=== PATIENT | female | born 1995 | race Caucasian/White ===

== ENCOUNTER 2019-11-07 04:39 | Inpatient (IN) | payer OTHER ==
[2019-11-07] VITALS (31 sets, daily range): BP systolic 110–171; BP diastolic 58–106
[~2019-11-07] VITALS: Ht 162.6 cm; Wt 78.7 kg
[2019-11-07] MEDS ORDERED: PRENTAB9 PO (05:00)
[2019-11-07] MEDS ORDERED: LACTATED RINGER'S 1000 ML IV STA (05:09)
[2019-11-07] MEDS ORDERED: LABETALOL HCL 100 MG/20 ML VIAL IV SCH (05:30)
[2019-11-07 06:30] LABS: BASO % 0.2 % (0.0-1.0); EOS % 0.2 % (0.0-3.0); HEMATOCRIT 37.2 % (36.0-47.0); LYMPH # 1.6 10^3/uL (1.5-5.0); LYMPH % 12.5 % (24.0-44.0); MEAN CORPUSCULAR HEMOGLOBIN 31.8 pg (27.0-33.0); MEAN CORPUSCULAR HGB CONC 34.9 g/dl (32.0-36.5); MONO # 0.9 10^3/uL (0.0-0.8); MONO % 6.8 % (0.0-5.0); NEUTROPHILS # 10.2 10^3/uL (1.5-8.5); NEUTROPHILS % 79.8 % (36.0-66.0); PLATELET COUNT, AUTOMATED 127 10^3/uL (150-450); RED BLOOD COUNT 4.09 10^6/uL (4.00-5.40); WHITE BLOOD COUNT 12.8 10^3/uL (4.0-10.0)
[2019-11-07 06:32] LABS: ALT/SGPT 17 U/L (12-78); BILIRUBIN,TOTAL 0.6 MG/DL (0.2-1.0); CREATININE FOR GFR 0.77 MG/DL (0.55-1.30); GLOMERULAR FILTRATION RATE > 60.0 (>60); LDH LACTATE DEHYDROGENASE 215 U/L (84-246); URIC ACID 4.5 MG/DL (2.6-6.0)
--- NOTE | 2019-11-07 06:34 | HPEPDOC ---
Obstetrical History & Physical General Date of Admission Nov 07, 2019 at 05:03 History of Present Illness Patient is a 24-year-old G1, P0 at 41.0 weeks by dating 8 week ultrasound. Prese nts with contractions every 3-5 minutes for past 2 hours. She was scheduled for an induction of labor for postdates today also. She denies any headaches or visual changes or right upper quadrant pain. No loss of fluid or bleeding. Good movement. 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 Past Medical History Medical History excercise induced asthma Surgical History: Other (left foot surgery) Family History Significant Family History: No pertinent family hx Social History Marital Status: Family situation: Spouse/partner home Psychosocial History: No pertinent psych hx * Smoker: non-smoker Alcohol: Denies Drugs: denies Abuse Violence Screening Have you been hit/kicked/slapp: No Have you been sexually assault: No Imunizations Tdap status: current Influenza Status: current Allergies Coded Allergies: No Known Allergies (Unverified , 11/07/19) Medications Scheduled No.137/Iron/Folic Acd ( Vitamin Tablet) 1 Each Tablet, 1 TAB PO DAILY Physical Examination Physical Examination GENERAL: Alert and oriented times three. BREAST: . ABDOMEN: Gravid and non-tender to touch. FETUS: Is vertex (VTX) by sterile vaginal examination (SVE), fetus is vertex (VTX) by Anthony with EFW 3500gm. HEART RATE: Regular rate and rhythm. LUNGS: Clear to auscultation (CTA). EXTREMITIES: No edema. Laboratory Data 24H LABS Laboratory Tests 2 11/07/19 05:11: Serology Scanned Report Hepatitis B Testing 11/07/19 05:50: CBC/BMP Urine Culture: No Growth Pertinent Laboratoy Data Blood Type: A+ RBC Antibody Screen: Negative HIV: Negative Hepatitis B: Negative Rapid Plasma Reagin: Nonreactive Rubella: Immune Varicella: Immune Chlamydia/Gonorrhea: Negative Group B Streptococcus: Negative Quad Screen Test: Negative Cystic Fibrosis: Negative Glucose Tolerance Test: 112 Anatomy Ultrasound Ultrasound Date: Jul 08, 2019 Placenta Location: Posterior Normal Anatomy: Yes (choroid plexus cyst, but normal) Placenta Previa: No Estimated Weight (grams): 531 Vaginal Examination Dilation: 2cm Effacement: 30% Station: -3 Presentation: Cephalic presentation Assessment Heart Rate (FHR): 140 Variability: Moderate Accelerations: Positive Decelerations: None Tocometer Contractions: Yes Frequency: regular, every 2-5 min. Duration: less than 60 seconds Strength: palpated as moderate Multi-drug resistant Organism: No history of MDRO Assessment/Plan Assessment Patient is a 24-year-old G1, P0 at 41.0 weeks by dating 8 week ultrasound. Admit for early labor and induction and expect delivery by . Pain management per patient preference, which was discussed with her. I discussed risks of with patient of failure with section, distress, bleeding, i nfection, , vaginal or perineal or neighboring organ tear. Blood pressures mildly elevated in the 150s over 80s. Preeclamptic panel will be ordered and blood pressures will be monitored for preeclampsia. If blood pressures go into the severe range or symptoms of preeclampsia, then magnesium sulfate will be started. This was discussed with the patient. Induction will be started with by mouth Cytotec and then possibly Pitocin. Currently, fetus is reassuring. GBS is negative, no need for antibiotics. 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 Diet: Regular. Group B Streptococcus (GBS) negative. Labs and intravenous (IV) per unit protocol. Counseled on Pitocin and induction of labor (IOL) with initially Cytotec and then possibly Pitocin. Lactated Ringers (LR): Bolus 500 mL, then at, 125 mL/hr. Anticipate normal spontaneous delivery (). Pain management per patient. Rachelle Nielson MD Nov 07, 2019 06:34
[2019-11-07] MEDS ORDERED: miSOPROStol 25 MCG 1/4 TAB (S0191) PO ONE (06:45)
[2019-11-07] MEDS ORDERED: ACETAMINOPHEN 500 MG TAB PO PRN (06:45)
[2019-11-07] MEDS ORDERED: SIMETHICONE 80 MG CHEW TAB PO PRN (06:45)
[2019-11-07] MEDS ORDERED: PROMETHAZINE INJ 25 MG/ML VIAL (J2550) IV ONE ×2 (06:45→20:45)
[2019-11-07] MEDS ORDERED: CALCIUM CARBONATE 500 MG CHEW U/D PO PRN (06:45)
[2019-11-07] MEDS ORDERED: PROMETHAZINE INJ 25 MG/ML VIAL (J2550) IV PRN (06:45)
[2019-11-07] MEDS ORDERED: BUTORPHANOL 2 MG/ML INJ (J0595) IV PRN (06:45)
[2019-11-07 07:57] LABS: APPEARANCE, URINE CLEAR (CLEAR); BACTERIA, URINE AUTO 2+ (NEGATIVE); BILIRUBIN, URINE AUTO NEGATIVE (NEGATIVE); BLOOD, URINE BLOOD 3+ (NEGATIVE); COLOR, URINE STRAW (YELLOW); GLUCOSE, URINE (UA) AUTO NEGATIVE (NEGATIVE); KETONE, URINE AUTO NEGATIVE (NEGATIVE); LEUKOCYTE ESTERASE, URINE AUTO TRACE (NEGATIVE); MUCUS, URINE SMALL (NEGATIVE); NITRITE, URINE AUTO NEGATIVE (NEGATIVE); PROTEIN, URINE AUTO NEGATIVE (NEGATIVE); RBC, URINE AUTO 3 /HPF (0-3); SPECIFIC GRAVITY URINE AUTO 1.002 (1.002-1.035); SQUAMOUS EPITHELIAL CELL UR AU 0 /HPF (0-6); UROBILINOGEN, URINE AUTO 0.2 mg/dL (0.0-2.0); WBC, URINE AUTO 2 /HPF (0-3)
[2019-11-07 08:22] LABS: CREATININE,RANDOM URINE 32.4 MG/DL; TOTAL PROTEIN,RANDOM URINE 16.6 MG/DL (0.0-12.0)
--- NOTE | 2019-11-07 10:28 | IPNPDOC ---
Text Note Date of Service The patient was seen on 11/07/19. NOTE Patient is a 24 yo G1 @ 41wks gestation admitted this AM for IOL for pending postdates. She is having irregular contractions. Denies PAYAN/N/V/change in vision. Her admission significant for mild range BP with spot urine 0.51 and plt of 127 vitals: mild range nad LE: no edema/erythema/tednerness fht: 140/mod claire/pos accel/ no decel toco: irregular ctx ce: 2-3/80/-1, mid, soft a/p patient is a@ 41 wks gestation with s/s consistent with pre-eclampsia. Start Mag if she shows signs of severe feature. davis bulb cath placed with 80cc on cervical side placed. will recheck as needed. DO Sveta VS,Rafy, I+O VS, Fishbone, I+O Laboratory Tests 11/07/19 05:50 Vital Signs Date Time Temp Pulse Resp B/P (MAP) Pulse Ox O2 Delivery O2 Flow Rate FiO2 11/07/19 09:16 79 18 157/84 (108) 11/07/19 07:37 98.2 ZOE DE LA PAZ DO Nov 07, 2019 10:26
[2019-11-07] MEDS ORDERED: OXYTOCIN DRIP 30 UNITS in IV 1 EA IV SCH (12:45)
[2019-11-07] MEDS: LR 1,000 ML IV SCH ×2 (13:00→16:53)
[2019-11-07] MEDS: BUTORPHANOL 2 MG/ML INJ (J0595) IV PRN ×2 (16:41→20:50)
[2019-11-07 18:58] LABS: BASO % 0.2 % (0.0-1.0); EOS % 0.1 % (0.0-3.0); HEMATOCRIT 35.4 % (36.0-47.0); HEMOGLOBIN 12.4 g/dl (12.0-15.5); LYMPH # 1.2 10^3/uL (1.5-5.0); LYMPH % 8.6 % (24.0-44.0); MEAN CORPUSCULAR HEMOGLOBIN 32.1 pg (27.0-33.0); MEAN CORPUSCULAR VOLUME 91.7 fl (80.0-96.0); MONO % 7.1 % (0.0-5.0); NEUTROPHILS # 11.8 10^3/uL (1.5-8.5); NEUTROPHILS % 83.6 % (36.0-66.0); PLATELET COUNT, AUTOMATED 114 10^3/uL (150-450); RED BLOOD COUNT 3.86 10^6/uL (4.00-5.40); WHITE BLOOD COUNT 14.1 10^3/uL (4.0-10.0)
[2019-11-07 19:30] LABS: ALT/SGPT 16 U/L (12-78); CREATININE FOR GFR 0.67 MG/DL (0.55-1.30); GLOMERULAR FILTRATION RATE > 60.0 (>60); LDH LACTATE DEHYDROGENASE 185 U/L (84-246); URIC ACID 4.5 MG/DL (2.6-6.0)
--- NOTE | 2019-11-07 23:42 | IPNPDOC ---
Text Note Date of Service The patient was seen on 11/07/19. NOTE patient is coping with regular painful contractions on pit 10mU/min. her davis bulb came out at around 12:40 and pitocin was started shortly after. She was checked to be 6cm per nursing staff at aroun 1800. She has received stadol and phenergan x 2 for pain management. vitals: normal - mild range fht: 140/mod claire/pos accel/occasional decel toco: ctx q 2mins ce: 6/80/-1, AROM with light mec small amount of fluid expressed a/p patient likely transitioning to active labor. continue to titrate pit to effect. recheck in 4hrs. place IUPC to assess contraction strength at that time if she remains unchanged. DO Sveta VS,Rafy, I+O VS, Rafy, I+O Laboratory Tests 11/07/19 05:50 11/07/19 18:41 Vital Signs Date Time Temp Pulse Resp B/P (MAP) Pulse Ox O2 Delivery O2 Flow Rate FiO2 11/07/19 22:35 98.0 80 150/80 (103) 11/07/19 20:50 18 ZOE DE LA PAZ DO Nov 07, 2019 23:42
[2019-11-08] VITALS (71 sets, daily range): BP systolic 106–174; BP diastolic 51–97
[2019-11-08] MEDS ORDERED: FENTANYL 2MCG/ML ROPIVACAINE 0.2% IN 0.9% NACL 100ML IVBAG As Ordered ONE ×2 (00:20→10:47)
[2019-11-08] MEDS ORDERED: diphenhydrAMINE INJ 50MG/ML VIAL (J1200) IV PRN ×2 (00:50→15:20)
[2019-11-08] MEDS ORDERED: ONDANSETRON 4MG/2ML VIAL (J2405) IV PRN ×3 (00:50→16:45)
[2019-11-08] MEDS ORDERED: NALOXONE INJ 0.4 MG/1 ML VIAL (J2310) IV PRN ×3 (00:50→15:20)
[2019-11-08] MEDS ORDERED: LACTATED RINGER'S 1000 ML IV PRN (00:50)
[2019-11-08] MEDS ORDERED: FENTANYL/ROPIVACAINE/NACL BAG 100 ML EPIDURAL SCH (00:50)
[2019-11-08] MEDS ORDERED: REFRIGERATOR IV KEYS XX PRN (00:50)
[2019-11-08] MEDS ORDERED: EPIDURAL/PCA KEYS XX PRN (00:50)
[2019-11-08] MEDS ORDERED: EPIDURAL COMMENT XX SCH (00:50)
[2019-11-08] MEDS: ePHEDrine SULFATE 25 MG/5 ML(5MG/ML) SYRINGE IV PRN ×3 (01:58→02:08)
--- NOTE | 2019-11-08 06:26 | IPNPDOC ---
Text Note Date of Service The patient was seen on 11/08/19. NOTE patient is comfortable with epidural. last checked at 0400 to be 8cm. pit at 6mU vitals: normal to mild range fht: 120/mod claire/pos accel/occasional decel toco: ctx q 2 mins ce: 8/90/0 a/p patient in active labor, slow progress. IUPC placed. titrate pit to adequate contractions. recheck in 2hrs. DO Sveta VS,Rafy, I+O VS, Rafy, I+O Laboratory Tests 11/07/19 18:41 Vital Signs Date Time Temp Pulse Resp B/P (MAP) Pulse Ox O2 Delivery O2 Flow Rate FiO2 11/08/19 04:56 75 137/77 (97) 11/08/19 03:26 98.1 11/07/19 20:50 18 I&O- Last 24 Hours up to 6 AM 11/08/19 06:00 Intake Total 4213 ml Output Total 1550 ml Balance 2663 ml ZOE DE LA PAZ DO Nov 08, 2019 06:26
[2019-11-08 07:49] LABS: BASO % 0.1 % (0.0-1.0); HEMATOCRIT 35.3 % (36.0-47.0); HEMOGLOBIN 12.2 g/dl (12.0-15.5); LYMPH # 1.1 10^3/uL (1.5-5.0); LYMPH % 6.8 % (24.0-44.0); MEAN CORPUSCULAR HEMOGLOBIN 32.1 pg (27.0-33.0); MEAN CORPUSCULAR HGB CONC 34.6 g/dl (32.0-36.5); MEAN CORPUSCULAR VOLUME 92.9 fl (80.0-96.0); MONO # 1.1 10^3/uL (0.0-0.8); MONO % 6.6 % (0.0-5.0); NEUTROPHILS # 13.7 10^3/uL (1.5-8.5); NEUTROPHILS % 86.1 % (36.0-66.0); PLATELET COUNT, AUTOMATED 98 10^3/uL (150-450); WHITE BLOOD COUNT 15.9 10^3/uL (4.0-10.0)
[2019-11-08] MEDS: LR 1,000 ML IV SCH (08:10)
[2019-11-08 08:17] LABS: ALT/SGPT 16 U/L (12-78); BILIRUBIN,TOTAL 1.3 MG/DL (0.2-1.0); CREATININE FOR GFR 0.98 MG/DL (0.55-1.30); GLOMERULAR FILTRATION RATE > 60.0 (>60); LDH LACTATE DEHYDROGENASE 189 U/L (84-246); URIC ACID 5.3 MG/DL (2.6-6.0)
[2019-11-08] MEDS ORDERED: MAG Sulf (OBGYN) 20GM/500ML 20,000 MG in IV 1 EA IV SCH (08:48)
[2019-11-08] MEDS ORDERED: MAGNESIUM *L&D* 4 GM/100 ML BAG (40MG/ML) (J3475) As Ordered ONE (08:54)
[2019-11-08] MEDS ORDERED: MAG Sulf (L&D) 4 GM/100 ML 4 GM in IV 1 EA IV ONE (09:00)
[2019-11-08] MEDS ORDERED: CALCIUM GLUCONATE 1,000 MG in D5W MINI-BAG PLUS 100 ML IV PRN (09:00)
--- NOTE | 2019-11-08 11:13 | IPNPDOC ---
Text Note Date of Service The patient was seen on 11/08/19. NOTE Intrapartum Note I assumed care of John this morning at 0730. In brief, she is a 24yo with SIUP at 41w1d who presented for labor check yesterday morning, was 2cm, and kept for IOL for LTG. She had davis bulb placed and was started on pitocin. She progressed to 8cm earlier this morning by Dr. Bangura's check, had clear AROM overnight. She was unchanged on follow-up exam, so an IUPC was placed. She was diagnosed with pre-eclampsia withOUT e/o severe features based on elevated bp's on presentation with urine protein:creatinine of 0.5. She has had labs repeated for low plt on presentation and they have steadily declined. Her recent creatinine was also increased to 0.98 so I have now made the diagnosis of HELLP syndrome and we have initiated IV MgSO4 for prophylaxis against seizures. Pt has epidural and is overall comfortable, not feeling any rectal pressure. Vitals: bp's normotensive to mild range, afebrile SCE: 9/90/-1 (cervix has lip anterior/right side but absent on the left) Cat I-II FHRT with min to mod claire, +accels, occasional non-persistent late decels that correct with fluids and/or position changes [place]: ctx q2-3min Labs: Hgb 13 --> 12.4 --> 12.2 Hct 37 --> 35.4 --> 35.3 PLT 127 --> 114 --> 98 creat 0.77 --> 0.67 --> 0.98 uric acid 4.5 --> 5.3 AST 20 ALT 16 protein:creatinine 0.51 Assessment: 24yo with SIUP at 41w1d with HELLP syndrome, continuing to progress in labor slowly. Will continue IV MgSO4 per protocol with neuro checks, monitor UOP with small IVF boluses prn to keep UOP >30ml/hr Will continue pitocin per protocol to tolerance CEFM Will continue to closely monitor Plan to re-check in 2hr or earlier as indicated Plan to re-check CBC and CMP at 1330 to follow plt Safe to proceed Dr. Leticia Caballero MD VSRafy, I+O Rafy COHEN, I+O Laboratory Tests 11/07/19 18:41 11/08/19 07:38 Vital Signs Date Time Temp Pulse Resp B/P (MAP) Pulse Ox O2 Delivery O2 Flow Rate FiO2 11/08/19 07:25 97.7 81 18 139/77 (97) I&O- Last 24 Hours up to 6 AM0 11/08/19 06:00 Intake Total 4213 ml Output Total 1550 ml Balance 2663 ml Leticia Caballero MD Nov 08, 2019 11:13
[2019-11-08] MEDS: AMPICILLIN SOD/SULBACTAM SOD 3 GM in D5W MINI-BAG PLUS 100 ML IV SCH ×2 (12:35→19:09)
--- NOTE | 2019-11-08 12:50 | IPNPDOC ---
Text Note Date of Service The patient was seen on 11/08/19. NOTE Intrapartum Note I was called by RN for minimal variability on FHRT, patient feeling pressure, new temp of 100.9F and minimal UOP 12ml/hr. Pt has epidural and is overall comfortable, feeling some rectal pressure now. Vitals: bp's normotensive to mild range, temp 100.9F SCE: C/C/0 (there was a small sliver of cervix on the right that I was able to reduce with pushing and is now completely reduced at rest) Currently Cat II FHRT with mod claire, +accels, variable/late decels with effective pushing [place]: ctx q2-4min Labs: Hgb 13 --> 12.4 --> 12.2 Hct 37 --> 35.4 --> 35.3 PLT 127 --> 114 --> 98 creat 0.77 --> 0.67 --> 0.98 uric acid 4.5 --> 5.3 AST 20 ALT 16 protein:creatinine 0.51 Assessment: 24yo with SIUP at 41w1d with HELLP syndrome, continuing to progress in labor, now C/C/0 and pushing. New dx chorio. Will continue pushing Begin 3g Unasyn IV q6hr, NICU physician will be notified of chorio dx Will continue IV MgSO4 1g/hr with neuro checks, monitor UOP with small IVF boluses prn to keep UOP >30ml/hr Repeat CBC and CMP at [address] proceed [address] Leticia Caballero MD VS,Rafy, I+O VS, Rafy I+O Laboratory Tests 11/07/19 18:41 11/08/19 07:38 Vital Signs Date Time Temp Pulse Resp B/P (MAP) Pulse Ox O2 Delivery O2 Flow Rate FiO2 11/08/19 11:36 100.9 107 18 11/08/19 11:35 143/68 (93) I&O- Last 24 Hours up to 6 AM 11/08/19 06:00 Intake Total 4213 ml Output Total 1550 ml Balance 2663 ml Leticia Caballero MD Nov 08, 2019 12:50
[2019-11-08] MEDS ORDERED: ceFAZolin 2 GM/D5W 50 ML IV BAG (J0690 PER 500MG) As Ordered ONE (14:03)
[2019-11-08] MEDS ORDERED: BICITRA 30ML SOLN UDC As Ordered ONE (14:04)
[2019-11-08] MEDS ORDERED: AZITHROMYCIN INJ 500MG VIAL (J0456) As Ordered ONE (14:04)
[2019-11-08 14:14] LABS: HEMATOCRIT 36.4 % (36.0-47.0); HEMOGLOBIN 12.7 g/dl (12.0-15.5); MEAN CORPUSCULAR HEMOGLOBIN 31.8 pg (27.0-33.0); MEAN CORPUSCULAR HGB CONC 34.9 g/dl (32.0-36.5); MEAN CORPUSCULAR VOLUME 91.2 fl (80.0-96.0); PLATELET COUNT, AUTOMATED 100 10^3/uL (150-450); RED BLOOD COUNT 3.99 10^6/uL (4.00-5.40); WHITE BLOOD COUNT 16.5 10^3/uL (4.0-10.0)
[2019-11-08] MEDS ORDERED: ceFAZolin SOD 2 GM in IV 1 EA IV ONE (14:15)
[2019-11-08] MEDS ORDERED: BICITRA 30ML SOLN UDC PO ONE (14:15)
[2019-11-08] MEDS ORDERED: AZITHROMYCIN INJ 500 MG, VIAL MATE ADAPTER 1 EACH in D5W 250 ML IV ONE (14:15)
[2019-11-08 14:32] LABS: ALBUMIN 2.5 GM/DL (3.2-5.2); BILIRUBIN,TOTAL 1.2 MG/DL (0.2-1.0); CREATININE FOR GFR 1.73 MG/DL (0.55-1.30); GLOMERULAR FILTRATION RATE 38.2 (>60); POTASSIUM SERUM 3.6 MEQ/L (3.5-5.1); TOTAL PROTEIN 5.2 GM/DL (6.4-8.2)
[2019-11-08] MEDS ORDERED: propofoL 200 MG/20 ML VIAL As Ordered ONE (14:33)
[2019-11-08] MEDS ORDERED: OXYTOCIN 30 UNITS IN 0.9% NaCl 500ML IV BAG (J2590) As Ordered ONE (14:33)
--- NOTE | 2019-11-08 14:35 | IPNPDOC ---
Text Note Date of Service The patient was seen on 11/08/19. NOTE Decision for section no further descent beyond 0 station after pushing for 1.5hr. discussed with patient dx of arrest of descent and recommendation for section. team notified, consent form fully discussed with patient all r/b/a, including consent form for blood product transfusion. all questions answered pitocin stopped bicitra anceph 2g IV azithromycin 500mg IV NICU physician notified due to presence of chorio Dr. Leticia Caballero MD VS,Rafy, I+O VS, Rafy I+O Laboratory Tests 11/07/19 18:41 11/08/19 07:38 11/08/19 13:56 Vital Signs Date Time Temp Pulse Resp B/P (MAP) Pulse Ox O2 Delivery O2 Flow Rate FiO2 11/08/19 12:36 101.7 131 18 147/82 (103) I&O- Last 24 Hours up to 6 AM 11/08/19 06:00 Intake Total 4213 ml Output Total 1550 ml Balance 2663 ml Leticia Caballero MD Nov 08, 2019 14:35
[2019-11-08] MEDS ORDERED: fentaNYL 100 MCG/2 ML INJECTION (J3010) As Ordered ONE (14:36)
[2019-11-08] MEDS ORDERED: MORPHINE PRES-FREE INJ 10 MG/10 ML VIAL (J2274) As Ordered ONE (14:37)
[2019-11-08] MEDS ORDERED: PHENYLephrine HCL 500 MCG/5 ML (100MCG/ML) SYRINGE (J2370) As Ordered ONE (15:10)
[2019-11-08] MEDS ORDERED: ePHEDrine SULFATE 25 MG/5 ML(5MG/ML) SYRINGE As Ordered ONE (15:10)
[2019-11-08] MEDS ORDERED: NALBUPHINE HCL 10 MG/ML AMP (J2300) IV PRN ×2 (15:20→16:45)
[2019-11-08] MEDS ORDERED: METOCLOPRAMIDE INJ 10MG/2ML VIAL (J2765) IV PRN (15:20)
[2019-11-08 15:21] LABS: CORD GAS ABE V -10.4; CORD GAS HCO3 V 19.1 MEQ/L; CORD GAS O2 SAT V 19.9 %; CORD GAS PCO2 V 56.5 mmHg; CORD GAS PH V 7.147 UNITS; CORD GAS PO2 V 16.5 mmHg; CORD GAS SBC V 14.8 MEQ/L; CORD GAS TCO2 V 20.8 MEQ/L
[2019-11-08 15:26] LABS: CORD GAS ABE A -11.3; CORD GAS O2 SAT A < 15.0 %; CORD GAS PCO2 A 69.3 mmHg; CORD GAS PH A 7.078 UNITS; CORD GAS PO2 A < 10.0 mmHg; CORD GAS TCO2 A 22.1 MEQ/L
[2019-11-08] MEDS ORDERED: OXYTOCIN INJ 10 UNITS/ML VIAL (J2590) As Ordered ONE (15:54)
[2019-11-08] MEDS ORDERED: MORPHINE 2 MG/ML 1ML VIAL (J2270) IV PRN (16:30)
[2019-11-08] MEDS ORDERED: RHOGAM 300 MCG (1500 IU) INJ (J2790) IM SCH (16:30)
[2019-11-08] MEDS ORDERED: miSOPROStol 200 MCG TAB (S0191) PR ONE (16:30)
[2019-11-08] MEDS ORDERED: MEASLES,MUMPS,RUBELLA VACCINE INJ (MMR-II) (90707) SC SCH (16:30)
[2019-11-08] MEDS ORDERED: PERCOCET 5MG/325MG TAB PO PRN (16:30)
[2019-11-08] MEDS ORDERED: fentaNYL 100 MCG/2 ML INJECTION (J3010) IV PRN (16:45)
[2019-11-08] MEDS ORDERED: LR 1,000 ML IV SCH (16:45)
[2019-11-08] MEDS: MAG Sulf (OBGYN) 20GM/500ML 20,000 MG in IV 1 EA IV SCH (18:16)
[2019-11-08] MEDS: DOCUSATE SODIUM 100 MG CAP PO SCH (20:47)
[2019-11-09] VITALS (33 sets, daily range): BP systolic 103–169; BP diastolic 53–102
[2019-11-09] MEDS: AMPICILLIN SOD/SULBACTAM SOD 3 GM in D5W MINI-BAG PLUS 100 ML IV SCH ×3 (00:50→13:30)
[2019-11-09 01:45] LABS: HEMATOCRIT 31.8 % (36.0-47.0); HEMOGLOBIN 11.2 g/dl (12.0-15.5); MEAN CORPUSCULAR HEMOGLOBIN 32.2 pg (27.0-33.0); MEAN CORPUSCULAR HGB CONC 35.2 g/dl (32.0-36.5); MEAN CORPUSCULAR VOLUME 91.4 fl (80.0-96.0); RED BLOOD COUNT 3.48 10^6/uL (4.00-5.40); WHITE BLOOD COUNT 21.3 10^3/uL (4.0-10.0)
[2019-11-09 01:47] LABS: PLATELET COUNT, AUTOMATED 95 10^3/uL (150-450)
[2019-11-09 02:09] LABS: ALBUMIN 1.8 GM/DL (3.2-5.2); BILIRUBIN,TOTAL 1.1 MG/DL (0.2-1.0); CALCIUM LEVEL 7.6 MG/DL (8.5-10.1); CREATININE FOR GFR 1.25 MG/DL (0.55-1.30); GLOMERULAR FILTRATION RATE 55.6 (>60); POTASSIUM SERUM 3.7 MEQ/L (3.5-5.1); TOTAL PROTEIN 4.2 GM/DL (6.4-8.2)
[2019-11-09] MEDS: LR 1,000 ML IV SCH ×2 (04:32→14:06)
--- NOTE | 2019-11-09 06:37 | IPNPDOC ---
Progress Note Date of Service: Nov 09, 2019 Day#: 1 Progress Note POD 1/PPD 1 SUBJECT: John is a 24yo [id number] s/p uncomplicated PLTCS at 41w1d for arrest of descent when undergoing IOL for LTG in the setting of HELLP syndrome and chorioamnionitis. Patient has been able to sleep. Had regular small dinner last night with no n/v. Has not yet ambulated since she is still receiving IV MgSO4 for 24hr. Davis in placing draining robust yellow urine. Baby is in the NICU for abx. Minimal lochia. No f/c/CP/SOB. She has O2 by nasal cannula currently since her O2 decreases slightly when she sleeps. No PAYAN/vision changes. Pain well controlled. OBJECTIVE: VITAL SIGNS: Within normal limits, afebrile. Alert and oriented times three. Abdomen: Fundus firm at U-2. Soft, NTTP. Pfannensteil incision covered by clean/dry optifoam dressing with tiny area of strikethrough, no erythema Extremities: SCDs on and functioning, BLE edema improving UOP: >150ml/hr Labs: Hgb 13 --> 12.4 --> 12.2 --> 11.2 Hct 37 --> 35.4 --> 35.3 --> 31.8 PLT 127 --> 114 --> 98 --> 100 --> 95 creat 0.77 --> 0.67 --> 0.98 --> 1.73 --> 1.25 AST 20 --> 60 ALT 16 --> 19 protein:creatinine 0.51 ASSESSMENT: John is a 24yo [id number] s/p uncomplicated PLTCS at 41w1d for arrest of descent when undergoing IOL for LTG in the setting of HELLP syndrome and chorioamnionitis. Vitals within normal limits, afebrile, hemodynamically stable with no evidence of infection. Robust urine output. Creatinine improving and plt stable. PLAN: 1. Continue /post-op care on L&D for IV MgSO4 until 24hr post-op 2. percocet or IV morphine prn pain (no NSAIDs) 3. ok to remove davis at 24hr post-op with 4hr due to void 4. repeat CBC and CMP at 1330, if still improving can potentially then do q24hr 5. continue IV unasyn until 24hr post-op 6. regular diet 7. bedrest until IV MgSO4 is done, after that encourage ambulation 8. Encourage breast feeding/pumping Dr. Leticia Caballero MD VS, I&O, 24H, Rafy Vital Signs/I&O Vital Signs Date Time Temp Pulse Resp B/P (MAP) Pulse Ox O2 Delivery O2 Flow Rate FiO2 11/09/19 03:57 98.6 109 18 118/69 (85) 11/08/19 21:30 100 I&O- Last 24 Hours up to 6 AM 11/09/19 06:00 Intake Total 7051 ml Output Total 3597 ml Balance 3454 ml Laboratory Data 24H LABS Laboratory Tests 2 11/08/19 07:38: Immature Granulocyte % (Auto) 0.4, Neutrophils (%) (Auto) 86.1H, Lymphocytes (%) (Auto) 6.8L, Monocytes (%) (Auto) 6.6H, Eosinophils (%) (Auto) 0.0, Basophils (%) (Auto) 0.1, Neutrophils # (Auto) 13.7H, Lymphocytes # (Auto) 1.1L, Monocytes # (Auto) 1.1H, Eosinophils # (Auto) 0.0, Basophils # (Auto) 0.0, Nucleated Red B lood Cells % (auto) 0.0, Immature Platelet Fraction 13.2H, Glomerular Filtration Rate > 60.0, Uric Acid 5.3, Total Bilirubin 1.3H, Aspartate Amino Transf (AST/SGOT) 20, Alanine Aminotransferase (ALT/SGPT) 16, Lactate Dehydrogenase 189 11/08/19 13:56: Nucleated Red Blood Cells % (auto) 0.0, Glomerular Filtration Rate 38.2L, Total Bilirubin 1.2H, Aspartate Amino Transf (AST/SGOT) 22, Alanine Aminotransferase (ALT/SGPT) 15, Anion Gap 14, Calcium Level 8.0L, Alkaline Phosphatase 179H, Total Protein 5.2L, Albumin 2.5L, Albumin/Globulin Ratio 0.93L 11/08/19 15:12: Cord Arterial Blood pH 7.078, Cord Arterial Blood PCO2 69.3, Cord Arterial Blood PO2 < 10.0, Cord Arterial Blood HCO3 20.0, Cord Arterial Blood Total CO2 22.1, Cord Arterial Blood Base Excess -11.3, Cord Arterial Bld Oxygen Saturation < 15.0, Cord Venous Blood pH 7.147, Cord Venous Blood PCO2 56.5, Cord Venous Blood PO2 16.5, Cord Venous Blood HCO3 19.1, Cord Venous Blood Total CO2 20.8, Cord Venous Base Excess (Actual) -10.4, Cord Venous Base Excess (Standard) 14.8, Cord Venous Blood Oxygen Saturation 19.9 11/09/19 01:26: Nucleated Red Blood Cells % (auto) 0.0 11/09/19 01:27: Anion Gap 7L, Glomerular Filtration Rate 55.6L, Calcium Level 7.6L, Total Bilirubin 1.1H, Aspartate Amino Transf (AST/SGOT) 60H, Alanine Aminotransferase (ALT/SGPT) 19, Alkaline Phosphatase 109, Total Protein 4.2L, Albumin 1.8#L, Albumin/Globulin Ratio 0.75L CBC/BMP Laboratory Tests 11/08/19 07:38 11/08/19 13:56 11/09/19 01:26 11/09/19 01:27 Microbiology Microbiology 11/08/19 Bacterial Culture, Received Pending Leticia Caballero MD Nov 09, 2019 05:16
[2019-11-09 07:21] LABS: HEMATOCRIT 30.8 % (36.0-47.0); MEAN CORPUSCULAR HEMOGLOBIN 32.4 pg (27.0-33.0); MEAN CORPUSCULAR HGB CONC 35.7 g/dl (32.0-36.5); MEAN CORPUSCULAR VOLUME 90.6 fl (80.0-96.0); PLATELET COUNT, AUTOMATED 90 10^3/uL (150-450); WHITE BLOOD COUNT 17.9 10^3/uL (4.0-10.0)
[2019-11-09] MEDS ORDERED: NIFEdipine 30 MG XL TAB PO SCH (09:00)
[2019-11-09] MEDS: PRENATAL VITAMINS CHEWABLE TABLET PO SCH (09:11)
[2019-11-09] MEDS: DOCUSATE SODIUM 100 MG CAP PO SCH ×2 (09:11→20:29)
[2019-11-09] MEDS: PERCOCET 5MG/325MG TAB PO PRN ×2 (09:13→16:34)
[2019-11-09] MEDS: MAG Sulf (OBGYN) 20GM/500ML 20,000 MG in IV 1 EA IV SCH (13:31)
[2019-11-09 13:34] LABS: HEMATOCRIT 31.9 % (36.0-47.0); HEMOGLOBIN 11.2 g/dl (12.0-15.5); MEAN CORPUSCULAR HEMOGLOBIN 32.1 pg (27.0-33.0); MEAN CORPUSCULAR HGB CONC 35.1 g/dl (32.0-36.5); MEAN CORPUSCULAR VOLUME 91.4 fl (80.0-96.0); RED BLOOD COUNT 3.49 10^6/uL (4.00-5.40); WHITE BLOOD COUNT 16.8 10^3/uL (4.0-10.0)
[2019-11-09 13:39] LABS: PLATELET COUNT, AUTOMATED 86 10^3/uL (150-450)
[2019-11-09 13:58] LABS: ALBUMIN 1.9 GM/DL (3.2-5.2); ALT/SGPT 26 U/L (12-78); BILIRUBIN,TOTAL 1.1 MG/DL (0.2-1.0); BLOOD UREA NITROGEN 11 MG/DL (7-18); CARBON DIOXIDE LEVEL 25 MEQ/L (21-32); CHLORIDE LEVEL 107 MEQ/L (98-107); GLOMERULAR FILTRATION RATE > 60.0 (>60); GLUCOSE, FASTING 90 MG/DL (70-100); POTASSIUM SERUM 3.6 MEQ/L (3.5-5.1); SODIUM LEVEL 138 MEQ/L (136-145); TOTAL PROTEIN 4.4 GM/DL (6.4-8.2)
--- NOTE | 2019-11-09 17:04 | RO ---
DATE OF PROCEDURE: 11/09/2019 SURGEON: Leticia Caballero MD OPERATOR ASSISTANT I CEMENTING: Dr. Rodolfo Squires CLINICAL SERVICE: Obstetrics INDICATIONS FOR OPERATION: John is a 24-year-old G1, now P1-0-0-1 who was admitted at 41 weeks for induction of labor secondary to late term gestation. She was noted on admission to have preeclampsia with no severe features, based on some initial elevated blood pressures and a urine protein creatinine ratio of 0.5. Over time labs were rechecked, and she was noted to have developed HELLP syndrome because her platelets decreased to 98, her creatinine increased to 0.98, and she continued to have mild range intermittent blood pressures. She also developed chorioamnionitis during her labor course, and she progressed through the stages of labor but ultimately had arrest of descent because she was unable to push the fetus past zero station after an hour and a half. PREOPERATIVE DIAGNOSES: 1. Induction of labor, late term gestation. 2. HELLP syndrome. 3. Chorioamnionitis. 4. Arrest of descent. POSTOPERATIVE DIAGNOSES: 1. Induction of labor, late term gestation. 2. HELLP syndrome. 3. Chorioamnionitis. 4. Arrest of descent. 5. Thick meconium material forwarded to the lab for examination, placenta and cord gases. DESCRIPTION OF FINDINGS: Female infant in cephalic presentation. scores 3 and 9, weight 3764 grams or 8 pounds 5 ounces, normal appearing uterus, fallopian tubes and ovaries. There was thick meconium noted on entry into the uterus. INFECTION CLASSIFICATION: II ESTIMATED BLOOD LOSS: 600 mL IV FLUIDS: 2 liters of lactated Ringer's. URINE OUTPUT: 125 mL. OPERATION PERFORMED: Primary low transverse section. DESCRIPTION OF OPERATION: After obtaining informed consent, John was taken to the operating room. She already had Eugene catheter and bilateral sequential compression devices in place. She had been started on IV magnesium previously. She was prepped and draped in the normal sterile fashion in the dorsal supine position with a left lateral tilt. A time-out was performed to confirm patient name, date of , procedure and indication; the team was in agreement. She received 2 grams of IV Ancef as was well as 500 mg of IV azithromycin for preoperative prophylaxis, and she had received 3 grams of Unasyn just prior to surgery for the new diagnosis of chorioamnionitis. Epidural anesthesia was found to be adequate using an Allis clamp. A Pfannenstiel skin incision was made with a scalpel and carried through to the underlying layer of fascia. Fascia was incised in the midline and incision was extended laterally with [place] scissors. Superior and inferior aspects of the fascial incision were grasped with Juan Carlos clamps, elevated, and the underlying rectus muscles were dissected off bluntly and sharply. Peritoneum was entered digitally, and the rectus muscles were in the midline. Peritoneal incision was extended superiorly and inferiorly with good visualization of the bladder. Bladder blade was inserted and the vesicouterine peritoneum was identified, grasped with pickups and entered sharply with Metzenbaum scissors. Incision was extended laterally and a bladder flap created digitally. It should be noted that the patient was quite edematous in all of her tissue layers noted during the surgery. Bladder blade was reinserted and the lower uterine segment was scored in a transverse fashion with a scalpel. Uterus was entered bluntly, and the incision was extended with traction. Bladder blade was removed, and the infant's head was elevated to the level of the incision with assistance of the vacuum given that the head was wedged deep in the pelvis, again thick meconium was noted. Fundal pressure was applied and the head was delivered atraumatically in the occiput anterior (OA) position. Anterior shoulder, posterior shoulder and corpus were delivered without difficulty. Baby was handed off to the awaiting team including the intensive care unit (NICU) physician after the cord was clamped times two and cut. Cord gases were obtained. Placenta was removed with uterine massage and traction on the umbilical cord, and the uterus was exteriorized and cleared of all clot and debris. Uterine incision was repaired with #0 Vicryl suture in a running locking fashion. There was slight extension down on the right side of the hysterotomy, but this was also repaired with #0 Vicryl suture and noted to be hemostatic. A second layer of #0 Monocryl was used to close the hysterotomy incision in an imbricating fashion. Uterine incision was inspected and hemostasis was noted. Posterior cul-de-sac was irrigated to get out any of the meconium that was particulate, and the uterus returned to the abdomen. Gutters were cleared of all clot. Hemostasis was noted. Peritoneum was closed using #3-0 Vicryl suture in a running fashion. Fascia was reapproximated with #0 Vicryl suture in a running fashion. Subcutaneous tissue was copiously irrigated. Kristi fascia was reapproximated using #3-0 Vicryl suture in a running fashion. Skin edges were reapproximated using three inverted interrupted stitches using #3-0 Vicryl suture followed by a running subcuticular stitch using #4-0 Monocryl suture. The incision was cleaned using a wet lap, dried with a dry lap. Steri-Strips were applied in the usual fashion perpendicular to Pfannenstiel incision and an Optifoam surgical dressing was applied. Vagina was cleared of all blood clot without active bleeding noted. Fundus was firm at the umbilicus. 800 mcg of Cytotec were placed in the rectum prophylactically given that the patient will continue on IV magnesium for 24 hours after delivery. All counts were correct times two. Procedure was without complications, and the patient tolerated the procedure well. She was taken to recovery room on labor and delivery in stable condition.
[2019-11-10] MEDS ORDERED: ONDANSETRON 4MG/2ML VIAL (J2405) IV PRN
[2019-11-10 02:00] VITALS: BP 149/85
[2019-11-10 06:00] VITALS: BP 117/74
[2019-11-10] MEDS: DOCUSATE SODIUM 100 MG CAP PO SCH ×2 (07:27→21:11)
[2019-11-10] MEDS: NIFEdipine 30 MG XL TAB PO SCH (07:27)
[2019-11-10] MEDS: PRENATAL VITAMINS CHEWABLE TABLET PO SCH (07:27)
[2019-11-10] MEDS: PERCOCET 5MG/325MG TAB PO PRN ×4 (07:39→23:45)
[2019-11-10 08:06] LABS: HEMATOCRIT 35.8 % (36.0-47.0); HEMOGLOBIN 12.5 g/dl (12.0-15.5); MEAN CORPUSCULAR HEMOGLOBIN 32.4 pg (27.0-33.0); MEAN CORPUSCULAR HGB CONC 34.9 g/dl (32.0-36.5); MEAN CORPUSCULAR VOLUME 92.7 fl (80.0-96.0); PLATELET COUNT, AUTOMATED 130 10^3/uL (150-450); RED BLOOD COUNT 3.86 10^6/uL (4.00-5.40); WHITE BLOOD COUNT 22.6 10^3/uL (4.0-10.0)
[2019-11-10 08:34] LABS: ALT/SGPT 28 U/L (12-78); BILIRUBIN,TOTAL 0.8 MG/DL (0.2-1.0); CREATININE FOR GFR 0.86 MG/DL (0.55-1.30); GLOMERULAR FILTRATION RATE > 60.0 (>60); LDH LACTATE DEHYDROGENASE 350 U/L (84-246); URIC ACID 5.7 MG/DL (2.6-6.0)
[2019-11-10 11:33] VITALS: BP 144/85
[2019-11-10] MEDS ORDERED: SLF 3 ML SYR IV PRN (12:15)
[2019-11-10 12:27] LABS: INFLUENZA A AMPLIFICATION NEGATIVE (NEGATIVE); INFLUENZA B AMPLIFICATION NEGATIVE (NEGATIVE)
--- NOTE | 2019-11-10 12:47 | IPNPDOC ---
Progress Note Date of Service: Nov 10, 2019 Day#: 2 Progress Note POD 2/PPD 2 SUBJECT: John is a 24yo [id number] s/p uncomplicated PLTCS at 41w1d for arrest of descent when undergoing IOL for LTG in the setting of HELLP syndrome and chorioamnionitis, doing well POD 2. Overall tolerating regular diet, had one episode of n/emesis last night but otherwise has been eating well. Voiding s pontaneously without issue. Ambulating well. Breasting- baby is in the NICU for abx. Minimal lochia. No f/c/CP/SOB. No PAYAN/vision changes. Pain well controlled. Only complaint is some throat discomfort- flu swab and throat culture obtained and results pending. She was started on oral nifedipine for high mild range bp's yesterday. OBJECTIVE: VITAL SIGNS: Normal to mild range bp's, afebrile. Alert and oriented times three. Abdomen: Fundus firm at U-1. Soft, appropriately tender to palpation. Pfa nnensteil incision covered by clean/dry optifoam dressing with tiny area of strikethrough, no erythema Extremities: 2+ BLE edema Labs: Hgb 13 --> 12.4 --> 12.2 --> 11.2 --> 10.8 Hct 37 --> 35.4 --> 35.3 --> 31.8 --> 34.2 PLT 127 --> 114 --> 98 --> 100 --> 95 --> 130 creat 0.77 --> 0.67 --> 0.98 --> 1.73 --> 1.25 --> 0.86 AST 20 --> 60 ALT 16 --> 19 protein:creatinine 0.51 ASSESSMENT: John is a 24yo [id number] s/p uncomplicated PLTCS at 41w1d for arrest of descent when undergoing IOL for LTG in the setting of HELLP syndrome and chorioamnionitis, doing well POD 2. BP's normal to low mild range after initiating PO nifedipine yesterday, afebrile, hemodynamically stable. Creatinine improving and plt stable. Only complaint is some throat discomfort- flu swab and throat culture obtained and results pending. PLAN: 1. Continue routine /post-op care 2. percocet or IV morphine prn pain (no NSAIDs) 3. regular diet 4. encourage ambulation and hydration 5. Encourage breast feeding and visitation of baby in NICU 6. flu swab and throat culture pending 7. continue nifedipine as prescribed, monitor bp Dr. Leticia Caballero MD VS, I&O, 24H, Fishbone Vital Signs/I&O Vital Signs Date Time Temp Pulse Resp B/P (MAP) Pulse Ox O2 Delivery O2 Flow Rate FiO2 11/10/19 11:33 98.1 91 18 144/85 (104) 98 Room Air I&O- Last 24 Hours up to 6 AM 11/10/19 06:00 Intake Total 1995.6 ml Output Total 4225 ml Balance -2229.4 ml Laboratory Data 24H LABS Laboratory Tests 2 11/09/19 13:19: Nucleated Red Blood Cells % (auto) 0.0, Immature Platelet Fraction 8.8, Anion Gap 6L, Glomerular Filtration Rate > 60.0, Calcium Level 8.0L, Total Bilirubin 1.1H, Aspartate Amino Transf (AST/SGOT) 77H, Alanine Aminotransferase (ALT/SGPT) 26, Alkaline Phosphatase 111, Total Protein 4.4L, Albumin 1.9L, Albumin/Globulin Ratio 0.76L 11/10/19 07:21: Nucleated Red Blood Cells % (auto) 0.0, Glomerular Filtration Rate > 60.0, Total Bilirubin 0.8, Aspartate Amino Transf (AST/SGOT) 55H, Alanine Aminotransferase (ALT/SGPT) 28, Uric Acid 5.7, Lactate Dehydrogenase 350H 11/10/19 11:43: Influenza Type A (RT-PCR) NEGATIVE, Influenza Type B (RT-PCR) NEGATIVE CBC/BMP Laboratory Tests 11/09/19 13:19 11/10/19 07:21 Microbiology Microbiology 11/10/19 Eye/Ear/Nose/Throat Culture, Received Pending 11/08/19 Bacterial Culture, Received Pending Letciia Caballero MD Nov 10, 2019 12:47
[2019-11-10] MEDS: SLF 3 ML SYR IV SCH ×2 (14:49→21:11)
[2019-11-10 15:08] VITALS: BP 139/82
[2019-11-10 18:14] VITALS: BP 133/77
[2019-11-10 22:00] VITALS: BP 142/84
[2019-11-11 02:00] VITALS: BP 150/82
[2019-11-11 06:00] VITALS: BP 148/85
[2019-11-11] MEDS: SLF 3 ML SYR IV SCH ×3 (06:00→21:11)
[2019-11-11] MEDS: NIFEdipine 30 MG XL TAB PO SCH (06:28)
[2019-11-11] MEDS ORDERED: DOCU100C16 PO (06:44)
[2019-11-11] MEDS ORDERED: PERCOCET PO ×2 (06:44)
[2019-11-11] MEDS ORDERED: NIFE1TAB52 PO (06:44)
[2019-11-11] MEDS: PRENATAL VITAMINS CHEWABLE TABLET PO SCH (08:20)
[2019-11-11] MEDS: DOCUSATE SODIUM 100 MG CAP PO SCH ×2 (08:20→21:11)
[2019-11-11] MEDS: PERCOCET 5MG/325MG TAB PO PRN ×2 (08:32→17:53)
--- NOTE | 2019-11-11 09:42 | IPNPDOC ---
Text Note Date of Service The patient was seen on 11/11/19. NOTE Called to assess patient due to concern for new abdominal redness. Patient was setup for discharge. Per off going provider, patient did not have redness on her abdomen on this AM exam. pt is a 24yo [id number] s/p uncomplicated PLTCS at 41w1d for arrest of descent when undergoing IOL for LTG in the setting of HELLP syndrome and chorioamnionitis pod #3. She was on unasyn for 24hrs post op. Today patient reports redness is new. pain well controlled. denies sweats/chills. she is tolerating po and ambulating without problem. vitals: mild range BP, non tachy nad, up and out of bed abd: nd, soft, blanching redness from dressing up to umbilicus. warm to touch, Dressing removed and incision is c/d/i, steri strips on, no redness around incision site. le: non pitting edema, symmetrical. no erythema, non tender a/p patient is pod #3 with new redness on abdomen. no redness immediately above incision site. Will cancel discharge. sruya border of redness. will reevaluate this afternoon. new concern for possible cellulitis vs. allergic reaction. Le, DO VS,Naee, I+O VS, Fishbone, I+O Vital Signs Date Time Temp Pulse Resp B/P (MAP) Pulse Ox O2 Delivery O2 Flow Rate FiO2 11/11/19 08:32 16 11/11/19 06:00 98.6 100 148/85 (106) 100 Room Air ZOE DE LA PAZ DO Nov 11, 2019 09:42
[2019-11-11 09:43] VITALS: BP 141/74
[2019-11-11 13:36] LABS: BASO % 0.2 % (0.0-1.0); EOS # 0.2 10^3/uL (0.0-0.5); EOS % 1.5 % (0.0-3.0); HEMATOCRIT 30.5 % (36.0-47.0); HEMOGLOBIN 10.7 g/dl (12.0-15.5); LYMPH % 13.3 % (24.0-44.0); MEAN CORPUSCULAR HEMOGLOBIN 32.1 pg (27.0-33.0); MEAN CORPUSCULAR HGB CONC 35.1 g/dl (32.0-36.5); MEAN CORPUSCULAR VOLUME 91.6 fl (80.0-96.0); MONO # 0.8 10^3/uL (0.0-0.8); MONO % 5.2 % (0.0-5.0); NEUTROPHILS # 11.9 10^3/uL (1.5-8.5); PLATELET COUNT, AUTOMATED 185 10^3/uL (150-450); RED BLOOD COUNT 3.33 10^6/uL (4.00-5.40)
[2019-11-11] MEDS ORDERED: ISOVUE-370 76% 100ML VIAL (Q9967) As Ordered ONE (13:43)
[2019-11-11 13:45] VITALS: BP 146/86
--- NOTE | 2019-11-11 15:01 | REP ---
CT of the abdomen and pelvis with IV contrast, without bowel contrast: The patient had a section 3 days ago. There are no comparison studies. There are small bilateral pleural effusions. There is atelectasis in the left lower lobe. The visualized lung kaye are otherwise unremarkable. There is a small volume of free intraperitoneal air anterior to the liver, likely postsurgical. The liver, gallbladder, pancreas, spleen, adrenals, kidneys and abdominal aorta are unremarkable. There is no bowel distension or obstruction. The mesentery is unremarkable. There is a small volume of ascites in the dependent pelvis. Pelvis: The uterus is enlarged and anteverted. There is a small volume of air within the endometrial canal. The adnexa are unremarkable. The bladder is distended. There is a small volume of air within the urinary bladder. This may be from recent catheterization. There is a small volume of air within the anterior pelvic wall soft tissues, likely postsurgical. There is edema with the anterior and within the anterior pelvic wall, likely postsurgical. Impression: Bilateral pleural effusions. Left lower lobe atelectasis. Small volume of free intraperitoneal air anterior to the liver. Small volume of ascites in the dependent pelvis. Intrauterine small volume of air. The adnexa are unremarkable. Small volume of air in the bladder, possibly from recent catheterization. Small volume of air in the anterior pelvic wall, likely postsurgical. Electronically Signed by Tomi Nielson MD 11/11/2019 02:52 P
[2019-11-11] MEDS ORDERED: FUROSEMIDE 20 MG/2 ML VIAL (J1940) IV ONE (17:00)
--- NOTE | 2019-11-11 18:20 | DSES ---
DATE OF ADMISSION: 11/07/2019 DATE OF DISCHARGE: This lady is a 24-year-old, 1, now para 1, admitted with contractions and for induction of labor at late term. She also had some nonsevere features of preeclampsia. She did have a primary section because of developing into HELLP syndrome, chorioamnionitis and arrest of descent. Delivered a live female infant, 8 pounds 5 ounces, 3764 grams, scores of three and nine at 1 and 5 minutes respectively. Arterial pH was 7.07, base excess -11.3, venous pH 7.14, base excess -10.4. Baby was in the NICU for possible effects of chorioamnionitis. Cultures were negative. She did have an elevated white count and some bands but there was no defined bacterial etiology. Her hemoglobin on admission was 12.7, hematocrit 36.4 and platelets were low at 100. White count was elevated at 16.5. Tracking her white count, highest was 22.6, hemoglobin was stable at 12.5, hematocrit 35.8 and platelets rebounded back to 130, they were in the low 90s and the lowest was 86. Tracking her chemistry, her GFR was originally greater than 60. Her electrolytes were always within normal limits. Her creatinine had reached a high of 1.73 but is now down to 0.86. The liver enzymes are coming back down to normal. On discharge today, and she will be discharged either as a boarder if baby is unable to go or at home, her blood pressure at 0200 hours was 150/82 which is the highest it has been, however she had just come back from the NICU, involved with her baby, and was having a difficult time with the baby being in the NICU. She has never during her stay reached severe range blood pressures. Her temperature is 98.0 and has been afebrile for 24 hours, pulse was 102, respirations are 18. Incision is clean and dry. The rest of the examination is unremarkable. She is normocephalic, atraumatic. Neck full range of motions. Pupils equal and reactive to light. Pulses are symmetric. No evidence of DVT, PE, or superficial phlebitis. Chest is clear bilaterally to the bases. No wheezes or rhonchi. Her concern was her sore throat which was evaluated. She had influenza A and B cultures which were negative and the general culture was negative. She did have precautions and wearing a mask but the fact that she is negative for A and B and normal throat culture suggest that there may have been some inflammatory effect secondary to the oral rinsing at the time of her section. She is not complaining of any shortness of breath, dyspnea on exertion. No urgency, frequency, incontinence. No nausea, vomiting, diarrhea or constipation. No diabetic issues. is going well. In summary, we have a late term induction of labor, had a primary section for HELLP syndrome, failure to descend and preeclampsia with resolving of that. She is still on nifedipine XL and should continue on that. Has a blood pressure check in the office in one week's time, a 2-week incision check and 6-week check. Baby will be reviewed by Dr. Au this morning in regards to discharge. If the baby is not able to be discharged then the mother will be considered boarder status. In summary, safe to proceed, the patient expressed understanding of continuing her antihypertensives and her appointment schedule. edited: 11/13/2019 0728 levy TAYLOR
[2019-11-11 18:40] VITALS: BP 134/68
[2019-11-11 22:00] VITALS: BP 135/71
[2019-11-12] MEDS: PERCOCET 5MG/325MG TAB PO PRN ×2 (01:53→07:10)
[2019-11-12 02:00] VITALS: BP 140/85
[2019-11-12 06:00] VITALS: BP 139/88
[2019-11-12 06:37] VITALS: BP 139/88
[2019-11-12] MEDS: NIFEdipine 30 MG XL TAB PO SCH (06:37)
[2019-11-12] MEDS: SLF 3 ML SYR IV SCH (06:37)
--- NOTE | 2019-11-12 06:50 | IPNPDOC ---
Progress Note Date of Service: Nov 12, 2019 Day#: 4 Progress Note pt is a 24yo [id number] s/p uncomplicated PLTCS at 41w1d for arrest of descent when undergoing IOL for LTG in the setting of HELLP syndrome and chorioamnionitis pod #4. She was on unasyn for 24hrs post op. Patient is kept for one day due to new abdominal erythema. She has been urinating throughout the night. pain well controlled. denies sweats/chills. she is tolerating po and ambulating without problem. received lasix 20mg IV x 1 vitals: mild range BP, non tachy nad, up and out of bed abd: nd, soft, blanching redness has decreased from marked border. incision c/d/i no erythema around the incision. le: non pitting edema, symmetrical. no erythema, non tender UOP: > 300cc/hr a/p patient is pod #4 doing well. no e/o infection at this time. abdominal redness and swelling likely from fluid third spacing, improved with diuretic. patient given return precautions and s/s of infection. discharge instructions. d/c home today. Le, DO VS, I&O, 24H, Fishbone Vital Signs/I&O Vital Signs Date Time Temp Pulse Resp B/P (MAP) Pulse Ox O2 Delivery O2 Flow Rate FiO2 11/12/19 06:37 139/88 11/12/19 06:00 97.5 112 18 99 Room Air I&O- Last 24 Hours up to 6 AM 11/12/19 06:00 Intake Total 800 ml Output Total 3600 ml Balance -2800 ml Laboratory Data 24H LABS Laboratory Tests 2 11/11/19 13:20: Immature Granulocyte % (Auto) 0.8, Neutrophils (%) (Auto) 79.0H, Lymphocytes (%) (Auto) 13.3L, Monocytes (%) (Auto) 5.2H, Eosinophils (%) (Auto) 1.5, Basophils (%) (Auto) 0.2, Neutrophils # (Auto) 11.9H, Lymphocytes # (Auto) 2.0, Monocytes # (Auto) 0.8, Eosinophils # (Auto) 0.2, Basophils # (Auto) 0.0, Nucleated Red Blood Cells % (auto) 0.0 CBC/BMP Laboratory Tests 11/11/19 13:20 Microbiology Microbiology 11/10/19 Eye/Ear/Nose/Throat Culture - Final, Complete 11/08/19 Bacterial Culture, Received Pending ZEO DE LA PAZ DO Nov 12, 2019 06:50
--- NOTE | 2019-11-12 06:53 | OBDS ---
[facility] Obstetrical Discharge Sum. Obstetrical Discharge Summary Speech Language Pathologist/Provider: Leticia Caballero MD : 1 Term: 1 Pre-term: 0 Abortions: 0 Livin VDRL: Non-Reactive Rh: Positive Rubella: Immune Sex: Female Infant Weight: pounds (8), ounces (5) Anesthesia: Regional Anesthesia A/P, Post Course List any complications Admission diagnosis: 1) gravid @ 41 wks gestation 2) pre-eclampsia Discharge diagnosis: 1) status post primary low transverse section 2) HELLP syndrome 3) Chorioamnionitis 4) Arrest of descent Condition at Discharge: stable Discharge Instructions: Home Activity: as tolerated Diet: regular Medications: filled at [facility] Follow-up: 1 week after discharge with OB clinic Hospital course: Patient admitted at 41wks gestation with pre-eclampsia. She underwent induction and progressed to complete. During her induction, she was diagnosed with HELLP syndrome and chorioamnionitis. She underwent primary low transverse section for arrest of descent. She completed 24hrs of Magnesium sulfate for seizure prophylaxis. She also received 24hrs of IV antibiotics . Patient was started no Nifedipine XL for blood pressure control. On day 3, there was concern for possible cellulitis of the abdomen due to increased redness. She was kept for observation. She was given diuretic which helped with redness. Remainder of her stay uncomplicated and she was discharged on ppd #4. ZOE DE LA PAZ DO Nov 11, 2019 20:57
[2019-11-12] MEDS: DOCUSATE SODIUM 100 MG CAP PO SCH (07:09)
[2019-11-12] MEDS: PRENATAL VITAMINS CHEWABLE TABLET PO SCH (07:09)
== END 2019-11-12 09:50 | disposition home or self-care (01) | DRG 771 ==
LOC: M LDO 04:39 → M LDI 05:03 → M OBS 11-09 16:00
PROVIDERS: ADMIT Obstetrics & Gynecology; ATTEND Obstetrics & Gynecology
PROC: 10907ZC Drainage of Amniotic Fluid, Therapeutic from Products of Conception, Via Natural or Artificial Opening (ICD-10-PCS; 2019-11-07)
PROC: 10D00Z1 Extraction of Products of Conception, Low, Open Approach (ICD-10-PCS; principal; 2019-11-09)
DX: O48.0 Post-term pregnancy (principal); O41.1230 Chorioamnionitis, third trimester, not applicable or unspecified; Z3A.41 41 weeks gestation of pregnancy; Z37.0 Single live birth; O14.04 Mild to moderate pre-eclampsia, complicating childbirth; O14.24 HELLP syndrome, complicating childbirth; O32.4XX0 Maternal care for high head at term, not applicable or unspecified; O77.0 Labor and delivery complicated by meconium in amniotic fluid